=== PATIENT | male | born 1960 | race Caucasian/White ===

== ENCOUNTER 2016-08-06 09:06 | Emergency (ER) | payer OTHER ==
[~2016-08-06] VITALS: Ht 157.5 cm; Wt 83.5 kg
[2016-08-06 09:11] VITALS: Ht 157.5 cm; Wt 83.5 kg
[2016-08-06] MEDS ORDERED: GABA300C16 PO (09:54)
[2016-08-06] MEDS ORDERED: CYCL-319 PO (09:54)
[2016-08-06] MEDS ORDERED: HYDR-906 PO (09:54)
--- NOTE | 2016-08-06 10:10 | ERD ---
ER Documentation Chief Complaint Date/Time DATE: 08/06/16 TIME: 10:00 Chief Complaint left hip pain, had injury 8 years ago HPI 56-year-old male complaining of chronic left hip pain. Patient states that he was released [facility] ago. While in the [facility], he had received x- ray of the left hip. He was told that he has degenerative left hip joint, which will require total hip replacement. He was given Tylenol 3 on release from [facility]. He does not have a PCP at this time. He is inquiring for orthopedic referral, and requesting for pain medications. The pain is worse after walking. He could not sleep at night because of pain. Patient states that gabapentin and Flexeril had help him with pain in the [facility]. Denies any recent injuries. Denies fever or chills. ROS All systems reviewed and are negative except as per history of present illness. Medications Home Meds Active Scripts Hydrocodone/Acetaminophen (Fleming 5-325 Tablet) 1 Each Tablet, 1 TAB PO Q6H Y for PAIN, #10 TAB Prov:LITTLE GONZALES. SALES ENGINEER ACCOUNT MANAGER 08/06/16 Gabapentin* (Gabapentin*) 300 Mg Capsule, 300 MG PO TID, #90 CAP Take 1 tab once daily on day 1. Take 1 tab twice daily on day 2. Then 1 tabe 3 times daily. Prov:LITTLE GONZALES. SALES ENGINEER ACCOUNT MANAGER 08/06/16 Cyclobenzaprine Hcl* (Cyclobenzaprine Hcl*) 10 Mg Tablet, 10 MG PO TID, #15 TAB Prov:LITTLE GONZALES. SALES ENGINEER ACCOUNT MANAGER 08/06/16 PMhx/Soc Medical and Surgical Hx: pt denies Medical Hx Physical Exam Vitals Vital Signs Date Time Temp Pulse Resp B/P Pulse Ox O2 Delivery O2 Flow Rate FiO2 08/06/16 09:11 98.1 81 18 127/81 99 Physical Exam General impression: Well-developed, well-nourished. Alert, oriented, in no acute distress Head: Normocephalic, atraumatic. Eyes: PERRL, EOM normal. Sclerae are normal. Conjunctiva not injected. ENT: External canals patent. TM'sclear. Nasal mucosa, oral mucosa and oropharynx are normal. Neck: Supple, nontender. No lymphadenopathy. No nuchal rigidity. Respiration: Normal respiratory effort. Lungs clear to auscultate bilaterally. No wheezes, rales or rhonchi. Cardiovascular: Regular rate and rhythm. No murmurs or extra heart sounds. Abdomen: Abdomen normal to inspection. Nontender. No masses or organomegaly. Bowel sounds normal. Back: Normal to inspection. No midline spine tenderness. No CVA tenderness. Extremities: Extremities normal to inspection, nontender. ROM normal. No erythema, swelling, or tenderness on palpation of the left hip. Patient walks with antalgic gait. Neurovascularly intact distally. Neuro: Mental status normal, speech normal. SECURITY CLERK grossly intact. Skin: Normal turgor. No rash or lesions. Psych: Normal mood and affect. Procedures/MDM Very pleasant 56-year-old male with history of degenerative left hip joint presents to the ED requesting medication for pain and Ortho referral. [facility] has [facility]. He is advised to make an appointment with PCP assigned by his insurance, for orthopedic referral. I will give him a one-month supply of gabapentin, 15 tablets of Flexeril, and 10 tablets her Fleming 5/325. Patient also advised to follow-up with his PCP for further medication management. Low suspicion for hip fracture, dislocation, septic arthritis. Patient appears well , stable for discharge and outpatient management. Medical decision making shared with patient and family. Education provided to patient and family. Patient and family expressed understanding of the plan. Medications on discharge: Gabapentin, Flexeril, Fleming. Follow-up: Primary care provider in 2-3 days or return to ED if worse. Departure Diagnosis: Primary Impression: Hip pain Laterality: left Qualified Code: M25.552 - Pain of left hip joint Condition: Good Patient Instructions: Before Total Hip Replacement: Your Conditioning Program Referrals: [facility] YOU HAVE RECEIVED A MEDICAL SCREENING EXAM AND THE RESULTS INDICATE THAT YOU DO NOT HAVE A CONDITION THAT REQUIRES URGENT TREATMENT IN THE EMERGENCY DEPARTMENT. FURTHER EVALUATION AND TREATMENT OF YOUR CONDITION CAN WAIT UNTIL YOU ARE SEEN IN YOUR DOCTORS OFFICE WITHIN THE NEXT 1-2 DAYS. IT IS YOUR RESPONSIBILITY TO MAKE AN APPOINTMENT FOR FOLOW-UP CARE. IF YOU HAVE A PRIMARY DOCTOR --you should call your primary doctor and schedule an appointment IF YOU DO NOT HAVE A PRIMARY DOCTOR YOU CAN CALL OUR PHYSICIAN REFERRAL HOTLINE AT IF YOU CAN NOT AFFORD TO SEE A PHYSICIAN YOU CAN CHOSE FROM THE FOLLOWING [facility] [address] [facility] [address] [facility] [address] [facility] [address] [facility] [facility] [facility] [address] [facility] [address] Additional Instructions: Call your primary care doctor TOMORROW for an appointment during the next 1 WEEK.Tell the water and gas helper that you were referred from this facility.See the doctor sooner or return here if your condition worsens before your appointment time. LITTLE GONZALES NP Aug 06, 2016 10:10
[2016-08-06 10:20] VITALS: BP 122/78; PULSE 64; RESP 18; TEMP 97.3
== END 2016-08-06 10:20 | disposition home or self-care (01) ==
LOC: FTE 09:06
DX: M25.552 Pain in left hip (principal)
CPT/HCPCS: 99284

== ENCOUNTER 2017-06-23 06:58 | Emergency (ER) | END 2017-06-23 12:45 | disposition home or self-care (01) ==